=== PATIENT | male | born 1960 | race Caucasian/White ===

== ENCOUNTER 2017-10-15 05:53 | Observation (INO) | payer OTHER, SELFPAY ==
[2017-10-04 15:10] VITALS: BP 129/88; PULSE 77; RESP 16; TEMP 36.9; O2SAT 95; BMI 34.7
--- NOTE | 2017-10-04 17:02 | PCM.HP.BLA ---
History and Physical DATE OF SERVICE: 10/15/2017 SCHEDULED PROCEDURE: Right knee unicompartmental arthroplasty HISTORY OF PRESENT ILLNESS: This is a 57-year-old male who recently underwent a left knee unicompartmental knee replacement in August 2017. Patient is doing well from that procedure. Patient states he is having difficulties with activities of daily living with his right knee. Pain is been intermittent. Pain is increased with sitting for extended periods of time. He has stumbled secondary to his right knee pain. Patient has tried rest and ice with no relief in symptoms. He has tried previous elevation and cortisone injection with minimal relief. Patient has been through physical therapy with no relief in symptoms. He has tried previous Euflexxa injections with no relief. Patient has been treated in the past by Dr. Rosado. Patient underwent a right knee arthroscopy in 2012. Patient did not see any significant improvement from surgery and conservative measures with the right knee. He has had a previous fracture of the patella many years ago on the right knee. Patient has lost approximately 15 pounds with no relief. Patient also underwent previous surgery in 1982 for his patella. Patient has tried a brace without significant relief. After failing conservative measures and discussing all treatment options with Dr. Betancourt, the patient would like to proceed with a right knee unicompartmental replacement. Patient lists no medical problems. He has no chest pain, shortness of breath, fevers chills, or recent infections. REVIEW OF SYSTEMS: ROS: Const: Denies anorexia, change in appetite, fever, difficulty sleeping, weight change. CV: Denies chest pain, heart murmur, irregular heartbeat and peripheral vascular disease. Resp: Denies asthma, cough, pneumonia, sleep apnea, shortness of breath, tuberculosis and wheezing. GI: Denies constipation, diarrhea, heartburn, nausea, rectal itching, bloody stools and vomiting. : . (F Genital Sx) Denies incontinence. Musculo: Denies leg swelling, pain, trouble walking and weakness. Skin: Denies Raynaud's, history of shingles and tattoo. Neuro: Denies ambulatory dysfunction, dizziness, numbness/tingling and tremor. Psych: Denies anxiety, depression, insomnia, mental illness and stress. Derrick/Lymph: Denies anemia, bleeding/bruising tendency and past transfusion. Reviewed, no changes. PAST MEDICAL HISTORY: Advance Care Plan: No Advance Directives Effective Date: 06/12/2017 PMH: Medical Problems: None Accidents: Fracture - RIGHT WRIST 11-29-2010 LEFT WRIST - 1989' RIGHT KNEE CAP - 1981 Surgical Hx: Back Surgery - 1993 AND [address] BETANC[address] AT [facility] RT Knee Arthroscopy - (2012) DR ROSADO LT Knee Arthroscopy - X2 Knee Replacement Unicompartmental LT - (08/20/2017) [email or web address] Anesthesia Complications: None Assistive Devices: Glasses - READING Reviewed, no changes. SOCIAL HISTORY: SH: Marital: .Occupation: [employer] - SELF EMPLOYED.Work Status: Currently Working.Hand Dominance: Right-handed. Personal Habits: Cigarette Use: Never Smoked Cigarettes.Alcohol: Occasionally.Drug Use: Denies Use.Enjoy Exercising: Exercises 1-3 x/month. Reviewed, no changes. VITALS: Ht: 73 Wt: 255lb Wt k.668 BMI: 33.6 BP: 126/72 Pulse: 68 Resp: 16 T: 97. T: 36.1C ALLERGIES: Penicillin - Possible Reaction-Patient Is Not Sure Of Reaction MEDICATIONS: No Active Medications PRE-OP EXAM: General appearance:NORMAL Other: Eyes: Conjunctivae and lids: NORMAL Pupils: ERR Ears, Nose, Mouth, and Throat: NORMAL Other: Inspection of lips, teeth and gums: NORMAL Other: Neck: Examination of neck: no masses noted. Respiratory: Assessment of respiratory effort: NORMAL Other: Ausculation of lungs: clear to ausculation no wheeses, ronchi or rales. Cardiovascular: Ausculation of heart: regular rate and rhythem, no mummurs, gallops or rubs. Exam of carotid arteries: NORMAL Other: Gastrointestinal: Exam of abdomen: soft, nontender, nondistended bowel sounds present. Lymphatic: Palpation of nodes in neck: NORMAL Other: Palpation of nodes in Axillae: NORMAL Other: Neurological: see below Psychiatric: Orientation to time, place and person: NORMAL Other: Mood and affect: NORMAL Other: PHYSICAL EXAMINATION: Right knee is cool to touch without erythema. Previous incisions well-healed. Tenderness to palpation along the medial joint line. Patient does present with mild effusion. Range of motion is 0? of extension to 120? of flexion with increased pain on end range. Sensations intact to light touch. IMAGING STUDIES: X-rays from [facility] shows severe right knee osteoarthritis with joint space narrowing, subchondral sclerosis, and osteophyte formation consistent with severe osteoarthritis. There is large osteophyte at the patellofemoral joint. MRI was obtained at [facility] on May 20, 2017 which does reveal status post medial meniscectomy without signs of recurrent tear. There is advanced osteoarthritis of the medial compartment with some progression. IMPRESSION: 1. Progressive medial compartment osteoarthritis PLAN: Dr. Porter did discuss and review with the patient all treatment options including surgical versus nonsurgical. Patient wishes to proceed with above-stated procedure. Potential risks, benefits, and complications of this procedure were discussed in detail including but not limited to , infection, nerve and blood vessel damage, persistent pain, numbness, tingling, paresthesias, blood clot, pulmonary embolism, and requirement for further surgery. The patient expressed full understanding has no further questions for the doctor. Patient does agree to proceed with the above-stated procedure and has signed the surgery consent form. ___ I have re-examined the patient. There are no clinical changes since date of exam. ___ See progress notes for changes. ___ Dictated on admission Date: Time: Signature:
--- NOTE | 2017-10-04 17:15 | HP.PCM_ITS ---
History and Physical DATE OF SERVICE: 10/15/2017 SCHEDULED PROCEDURE: Right knee unicompartmental arthroplasty HISTORY OF PRESENT ILLNESS: This is a 57-year-old male who recently underwent a left knee unicompartmental knee replacement in August 2017. Patient is doing well from that procedure. Patient states he is having difficulties with activities of daily living with his right knee. Pain is been intermittent. Pain is increased with sitting for extended periods of time. He has stumbled secondary to his right knee pain. Patient has tried rest and ice with no relief in symptoms. He has tried previous elevation and cortisone injection with minimal relief. Patient has been through physical therapy with no relief in symptoms. He has tried previous Euflexxa injections with no relief. Patient has been treated in the past by Dr. Rosado. Patient underwent a right knee arthroscopy in 2012. Patient did not see any significant improvement from surgery and conservative measures with the right knee. He has had a previous fracture of the patella many years ago on the right knee. Patient has lost approximately 15 pounds with no relief. Patient also underwent previous surgery in 1982 for his patella. Patient has tried a brace without significant relief. After failing conservative measures and discussing all treatment options with Dr. Betancourt, the patient would like to proceed with a right knee unicompartmental replacement. Patient lists no medical problems. He has no chest pain, shortness of breath, fevers chills, or recent infections. REVIEW OF SYSTEMS: ROS: Const: Denies anorexia, change in appetite, fever, difficulty sleeping, weight change. CV: Denies chest pain, heart murmur, irregular heartbeat and peripheral vascular disease. Resp: Denies asthma, cough, pneumonia, sleep apnea, shortness of breath, tuberculosis and wheezing. GI: Denies constipation, diarrhea, heartburn, nausea, rectal itching, bloody stools and vomiting. : . (F Genital Sx) Denies incontinence. Musculo: Denies leg swelling, pain, trouble walking and weakness. Skin: Denies Raynaud's, history of shingles and tattoo. Neuro: Denies ambulatory dysfunction, dizziness, numbness/tingling and tremor. Psych: Denies anxiety, depression, insomnia, mental illness and stress. Derrick/Lymph: Denies anemia, bleeding/bruising tendency and past transfusion. Reviewed, no changes. PAST MEDICAL HISTORY: Advance Care Plan: No Advance Directives Effective Date: 06/12/2017 PMH: Medical Problems: None Accidents: Fracture - RIGHT WRIST 11-29-2010 LEFT WRIST - 1989' RIGHT KNEE CAP - 1981 Surgical Hx: Back Surgery - 1993 AND [address] BETANCOURT AT [facility] RT Knee Arthroscopy - (2012) DR ROSADO LT Knee Arthroscopy - X2 Knee Replacement Unicompartmental LT - (08/20/2017) [email or web address] Anesthesia Complications: None Assistive Devices: Glasses - READING Reviewed, no changes. SOCIAL HISTORY: SH: Marital: .Occupation: [employer] - SELF EMPLOYED.Work Status: Currently Working.Hand Dominance: Right-handed. Personal Habits: Cigarette Use: Never Smoked Cigarettes.Alcohol: Occasionally.Drug Use: Denies Use.Enjoy Exercising: Exercises 1-3 x/month. Reviewed, no changes. VITALS: Ht: 73 Wt: 255lb Wt k.668 BMI: 33.6 BP: 126/72 Pulse: 68 Resp: 16 T: 97. T: 36.1C ALLERGIES: Penicillin - Possible Reaction-Patient Is Not Sure Of Reaction MEDICATIONS: No Active Medications PRE-OP EXAM: General appearance:NORMAL Other: Eyes: Conjunctivae and lids: NORMAL Pupils: ERR Ears, Nose, Mouth, and Throat: NORMAL Other: Inspection of lips, teeth and gums: NORMAL Other: Neck: Examination of neck: no masses noted. Respiratory: Assessment of respiratory effort: NORMAL Other: Ausculation of lungs: clear to ausculation no wheeses, ronchi or rales. Cardiovascular: Ausculation of heart: regular rate and rhythem, no mummurs, gallops or rubs. Exam of carotid arteries: NORMAL Other: Gastrointestinal: Exam of abdomen: soft, nontender, nondistended bowel sounds present. Lymphatic: Palpation of nodes in neck: NORMAL Other: Palpation of nodes in Axillae: NORMAL Other: Neurological: see below Psychiatric: Orientation to time, place and person: NORMAL Other: Mood and affect: NORMAL Other: PHYSICAL EXAMINATION: Right knee is cool to touch without erythema. Previous incisions well-healed. Tenderness to palpation along the medial joint line. Patient does present with mild effusion. Range of motion is 0? of extension to 120? of flexion with increased pain on end range. Sensations intact to light touch. IMAGING STUDIES: X-rays from [facility] shows severe right knee osteoarthritis with joint space narrowing, subchondral sclerosis, and osteophyte formation consistent with severe osteoarthritis. There is large osteophyte at the patellofemoral joint. MRI was obtained at [facility] on May 20, 2017 which does reveal status post medial meniscectomy without signs of recurrent tear. There is advanced osteoarthritis of the medial compartment with some progression. IMPRESSION: 1. Progressive medial compartment osteoarthritis PLAN: Dr. Porter did discuss and review with the patient all treatment options including surgical versus nonsurgical. Patient wishes to proceed with above- stated procedure. Potential risks, benefits, and complications of this procedure were discussed in detail including but not limited to , infection , nerve and blood vessel damage, persistent pain, numbness, tingling, paresthesias, blood clot, pulmonary embolism, and requirement for further surgery. The patient expressed full understanding has no further questions for the doctor. Patient does agree to proceed with the above-stated procedure and has signed the surgery consent form. ___ I have re-examined the patient. There are no clinical changes since date of exam. ___ See progress notes for changes. ___ Dictated on admission Date: Time: Signature:
[2017-10-15] VITALS (10 sets, daily range): BP systolic 99–142; BP diastolic 49–80; PULSE 65–95; RESP 16–18; TEMP 36.1–37.1; O2SAT 89–98; BMI 34.7
[2017-10-15] MEDS: oxyCODONE HCl Cr 10 MG Tablet PO (06:30)
[2017-10-15] MEDS: Acetaminophen 500 MG Tablet 1000 MG PO ×3 (06:30→21:00)
[2017-10-15] MEDS: Cefazolin 2 GM in 0.9% Normal Saline 100 ML IV (07:21)
--- NOTE | 2017-10-15 07:23 | RAD_ITS ---
STUDY: X-RAY - RIGHT KNEE REASON FOR EXAM: Male, 57 years old. Knee replacement. TECHNIQUE: AP and lateral view(s) of the knee. COMPARISON: Comparison is made with prior examination dated June 12, 2017. FINDINGS: The patient is status post medial hemiarthroplasty. There is normal alignment. Postoperative soft tissue changes. RAD/Knee 1 or 2 Views IMPRESSION: The patient is status post medial hemiarthroplasty. There is good alignment. Postoperative soft tissue changes. Electronically Signed: Orlando Zimmer MD at 10:50 EST Tel [phone], Service support ,
--- NOTE | 2017-10-15 10:58 | NURSING ---
pt's pulse ox drops when sleeping, quickly rises when awakened
[2017-10-15] MEDS: Lactated Ringers 1,000 ML 125 ML IV ×2 (12:30→20:59)
[2017-10-15] MEDS: Senna/Docusate Sodium 1 Tablet 2 TABLET PO ×2 (12:35→21:00)
[2017-10-15] MEDS: oxyCODONE 5 MG Tablet PO ×2 (14:07→21:01)
[2017-10-15] MEDS: Cefazolin 1 GM/50 ML BAG IV ×2 (15:14→22:30)
[2017-10-15] MEDS: Meloxicam 7.5 MG Tablet PO ×2 (15:14→21:00)
[2017-10-15] MEDS: Aspirin 325 MG Tablet PO (17:10)
[2017-10-16 02:30] VITALS: BP 103/69; PULSE 78; RESP 16; TEMP 37.1; O2SAT 98
[2017-10-16] MEDS: oxyCODONE 5 MG Tablet PO (02:37)
[2017-10-16] MEDS: Acetaminophen 500 MG Tablet 1000 MG PO (05:59)
[2017-10-16 07:05] LABS: Hematocrit 38.3 % (40-54); Hemoglobin 12.1 g/dl (13.0-16.5); Mean Corp Hgb Conc 31.6 g/gl (32-36); Mean Corpuscular Hgb 28.9 pg (27.0-32.0); Mean Corpuscular Volume 91.6 fL (80-94); Mean Platelet Vol. 9.6 fl (6.2-12.0); Platelet Count 203 K/mm3 (150-450); RBC Distribution Width CV 13.7 % (11.6-14.6); RBC Distribution Width SD 45.2 fl (35.1-43.9); Red Blood Count 4.18 M/mm3 (4.6-6.2)
[2017-10-16 07:06] LABS: Scan Indicated on CBC? Y/N NO
[2017-10-16 07:26] LABS: Anion Gap 7 (5-15); BUN 12 mg/dL (7-18); Chloride 107 mmol/L (98-107); Creatinine, Serum 0.86 mg/dL (0.70-1.30); EST Glomerular Filtration Rate 98 mL/min (>60); Est Glom Filt Rate - Afr Amer 119 mL/min (>60); Estimated Creatinine Clearance 108.39 ml/min; Glucose 102 mg/dL (74-106); Sodium Level 139 mmol/L (136-145)
[2017-10-16 08:14] VITALS: BP 131/65; PULSE 85; RESP 18; TEMP 37.1; O2SAT 95
--- NOTE | 2017-10-16 08:15 | PN.ORTHO_ITS ---
Subjective: Patient is resting comfortably in bed during exam. No adverse events overnight. Pain in the right knee has been well controlled. Denies chest pain , shortness of breath, dizziness, calf pain. Doing well overall would like to be discharged home later today as long as he is doing well with physical therapy and pain is well controlled. Patient states that his believes that oxycodone makes him mean/irritable. He does wish to discontinue this medication and switch to [place]. It has worked in the past. Objective: Patient is alert and oriented ?3. No acute distress at rest. Breathing easily without respiratory distress. Inspection of dressings are with minimal dried bloody drainage. Negative Dory bilaterally without signs of DVT. Sensation intact light touch bilateral lower extremities. Able to actively plantar and dorsiflex bilateral feet against resistance. Pedal pulses present +2 bilaterally. Neurovascularly intact. - Physical Exam Vital Signs Temp Pulse Resp BP Pulse Ox 98.7 F 78 16 103/69 98 10/16/17 02:30 10/16/17 02:30 10/16/17 02:30 10/16/17 02:30 10/16/17 02:30 Oxygen Delivery Method Room Air Weight: 119.2 kg Body Mass Index (BMI) 34.7 Intake and Output for Last 24 Hours 10/14/17 10/15/17 10/16/17 23:59 23:59 23:59 Intake Total 4075 / 4075 888 / 888 Output Total 250 / 250 400 / 400 Balance 3825 / 3825 488 / 488 Laboratory Tests Past 24 Hrs 10/16/17 10/16/17 06:30 06:30 WBC 8.0 RBC 4.18 L Hgb 12.1 L Hct 38.3 L MCV 91.6 MCH 28.9 MCHC 31.6 L RDW 13.7 RDW Differential 45.2 H Plt Count 203 MPV 9.6 Sodium 139 Potassium 4.0 Chloride 107 Carbon Dioxide 25.0 Anion Gap 7 BUN 12 Creatinine 0.86 Estim Creat Clear Calc 108.39 Est GFR (MDRD) Af Amer 119 Est GFR (MDRD) Non-Af 98 BUN/Creatinine Ratio 14.0 Glucose 102 Calcium 8.0 L Assessment/Plan 1. Status post right medial U KA and lateral osteophyte excision; postop day #1 2. Discontinue Tylenol and OxyIR add One[place] 3. DVT prophylaxis; bilateral teds, SCDs and begin aspirin therapy 4. Begin PT/OT; weightbearing as tolerated right lower extremity with a walker 5. Drop in hemoglobin/hematocrit, asymptomatic; continue to monitor. Without indication for transfusion 6. Encourage incentive spirometry 7. Continue discharge planning with case management. If patient continues with adequate pain control and does well with physical therapy today we will anticipate discharge to home
--- NOTE | 2017-10-16 08:18 | PCM.DC.TKR ---
Discharge Diet: No Restrictions Discharge Activity: May Not Drive, May not drive while taking narcotic pain medications., Use Walker May shower in (days): 3 Ice area for (Minutes): 20 - every hour while awake. Weight Bearing Status: Weight bearing as tolerated Elevate: Operative Extremity Additional Activity Instructions:: Wear elastic stockings for 2 weeks after your surgery. See postoperative pink sheet Call your doctor if your incision/area has: Continuous Slow Oozing, Sudden Increased Bleeding, Increased Pain/ Swelling, Increased Redness, Foul Smelling Discharge Call your doctor if you observe: Fever of 101 or Higher, Coldness, Increased Pain, Numbness or Tingling, Change in Color, Chest pain, Calf discomfort, Uncontrolled pain Remove Dressing in (days):: 5 Cleanse incision/area with: Soap & Water Additional Dressing/Incision Instructions:: See postoperative pink sheet Allergies/Adverse Reactions: Allergies Penicillins Allergy (Verified 10/15/17 11:39) Unknown Mother is allergic - told by PCP not to take it.. has never taken med celecoxib [From Celebrex] Adverse Reaction (Verified 10/07/17 09:01) MUSCLE CRAMPS oxycodone [From Percocet] Adverse Reaction (Verified 10/07/17 09:01) IRRITABLE very irRITABLE Medications to take at Discharge Aspirin 325 mg PO BIDCM #30 tab 10/16/17 Hydrocodone Bitart/Apap 5-325 [[place] 5/325] 1 - 2 tablet PO Q4H PRN PRN 7 Days #56 tablet 10/16/17 Senna/Docusate Sodium [Senokot-S] 2 tab PO BID #30 tab 10/16/17 The following prescriptions were given: Hydrocodone Bitart/Apap 5-325 [[place] Pow[place] 5/325] 1 - 2 tablet PO Q4H PRN PRN 7 Days #56 tablet PRN Reason: Severe Pain (6-10/10) Aspirin 325 mg PO BIDCM #30 tab Senna/Docusate Sodium [Senokot-S] 2 tab PO BID #30 tab Primary Care Physician: Jayson Arenas MD [Primary Care Provider] - Proposed Discharge Date: 10/16/17
[2017-10-16 08:43] VITALS: PULSE 85; RESP 18; O2SAT 95
[2017-10-16] MEDS: Aspirin 325 MG Tablet PO (08:53)
[2017-10-16] MEDS: Meloxicam 7.5 MG Tablet PO (10:13)
[2017-10-16] MEDS: Senna/Docusate Sodium 1 Tablet 2 TABLET PO (10:13)
--- NOTE | 2017-10-16 11:00 | CASEMGMT ---
GABY WILLS Face to Face with patient for initial transition planning/care coordination assessment. GABY WILLS introduced self and role at [facility]. Patient sitting in chair, alert and oriented. Patient willing to participate in assessment and is able to answer all questions appropriately. Care providers, pharmacy, and demographics verified. See link attached. Patient wishes to discharge home and is setup with [id number] for outpatient therapy. Patient states that his will be providing transportation. Patient states he has no further needs or concerns at this time. CM to follow for discharge planning needs that may arise. Disposition Plan: Patient to discharge home with outpatient therapy, family support, and follow-up plans in place.
[2017-10-16] MEDS: HYDROcodone Bitartrate/Apap 5/325 Tablet PO (13:03)
[2017-10-16 13:23] VITALS: BP 131/59; PULSE 84; RESP 18; TEMP 37.4; O2SAT 96
--- NOTE | 2017-10-16 14:08 | CHAPLAIN ---
Type of Pastoral Visit _x__ Initial Visit ___ Follow-up Visit ___ On-call Visit ___ General Patient Visit ___ Spiritual Assessment ___ Family Conference ___ Bereavement ___ Rapid Response ___ Code Blue ___ Other (describe below) Pastoral Care Referral From _x__ Patient _x__ Family ___ Nurse ___ Physician ___ National Secretary ___ Physiognomist ___ Other (describe below) Sacrament/Intervention ___ Active listening ___ Anointing ___ Evangelical ___ Bereavement ___ Communion ___ Elizabeth exploration ___ ___ Life review ___ Prayer ___ Reconciliation ___ Sacrament of Sick _x__ Supportive presence ___ Wedding ___ Other (describe below) Pastoral Comments patient reports that he is doing well; pt anticipates going home very soon; no concerns at this time; friendly and casual visit
== END 2017-10-16 14:20 | disposition home or self-care (01) ==
PROVIDERS: Admitting Provider Orthopaedic Surgery; Family Provider Family Medicine; PCP Family Medicine; Visit Provider Orthopaedic Surgery
PROC: (CPT 27446; principal; 2017-10-15 07:05)
DX: M17.11 Unilateral primary osteoarthritis, right knee (principal); Z23 Encounter for immunization
CPT/HCPCS: 27446; 64447; 36415; 73560; 80048; 85027; 87081; 96361; 96365; 96366; 97110; 97116; 97162; 97165; 97530; 99218; J7120; 90686; G0378; G0379; J2405

== ENCOUNTER 2017-11-29 08:00 | Outpatient (RCR) | payer OTHER, SELFPAY ==
[2017-10-15 17:08] VITALS: BP 114/67
[2017-10-16 13:23] VITALS: BP 131/59
--- NOTE | 2017-10-18 11:00 | HP.PTEVAL_ITS ---
Patient's Visit Information MEAGHAN RUBI is a 57 year old M referred to Physical Therapy by Torey TELLEZ with a diagnosis of Right partial knee replacement. Date of Evaluation: 10/18/17 Physical Therapist: Renetta Weinstein - Visit Plan Frequency: 2-3x /Week Duration: 3 Weeks Plan: Partial TKR 10/15 - Subjective Subjective: Patient has partial right partial knee replacement Saturday10/15/[address] Gabriel at [facility]. Spent the night and then went home. Had a left TKR Aug 202017 and did great. Took a big bone spur and MD throughout it would be painful. Patient reports increased swelling and hard to bend. Sleep is very disturbed- hard to get comfortable and is sleeping in the chair, couch, anywhere he can be. Worst: 3/10 Agg: movement Ease: ice, meds. Best: 0/10. Pain is located in the hip. No N/T in the toes or knee. Describes pain as dull and achy pains. PMHx/Meds: no change since surgery. Work: [employer]- [employer] mid december. - Objective Posture: FH, RS, Increased kyphosis. Gait: antalgic- uses Fww- decreased stance on the right LE- poor heel/toe pattern secondary to poor ROM. SLS: unable but will weight shift. HRTR: able. Stairs: non recip with 2 HR and significant UE use. Palpation: tender throughout the right knee- not tender in calf. Edema: moderate. ROM: 20-80 degrees. Strength: Ankle: 5/5, Knee: 4/5, Hip: 4-/5 - Goals Goal 1:: Patient will be I with HEP and progression Goal Time Frame: 4-6 Weeks Goal 2:: Patient will ambulate >300 feet with a normalized gait pattern Goal Time Frame: 4-6 Weeks Goal 3:: Patient will demo 0-115 degrees of ROM Goal Time Frame: 4-6 Weeks Goal 4:: Patient will asc/desc 8' stairs recip with 1 HR Goal Time Frame: 4-6 Weeks - Rehabilitation Potential Physical Therapy Diagnosis: Patient presents with hypmobility- he has decreased ROM, strength and muscular endurance leading to decreased ability to perform ADL 's. Rehabilitation Potential: Good - Anticipated Interventions Patient/Client Instruction: Educate patient on: Benefits of Fitness Program For the Purpose of:: To increase tolerance to activity/condition/position Therapeutic Exercise to Include: Strength training, Endurance training, Balance training, Body mechanics, Postural training, Flexibilty training, Gait and locomotor training, Passive ROM, Active ROM, Dynamic Lumbar Stabilization For the Purpose of:: To improve muscle performance and motor function TENS: Yes Cryotherapy (ice pack, ice massage): Yes Thermo therapy (hot pack): Yes Ultrasound (thermal/non thermal): No Vasopneumatic device: Yes For the Purpose of:: To decrease pain Thank you for the opportunity to evaluate your patient. For Medicare and Medicare HMO plans, please review the plan of care and approve it. It will need to be FAXED BACK to us at [phone] for Medicare purposes. Please let me know if there are questions or concerns regarding this plan of care. Physician Signature: Date:
--- NOTE | 2017-11-08 08:51 | HP.PTREVAL_ITS ---
Torey Gabriel, It has been my pleasure to treat MEAGHAN RUBI over the last 10 visits for Right partial knee replacement. Please see the progress note below for an update on the physical therapy plan of care! Subjective: Patient reports that sometimes its so stiff and other times its not so bad. The ROM is coming but its still not there yet. Pain is on the lateral aspect of the knee. Going down stairs is more painful. Objective/Function: Posture: good throughout. Gait: antalgic- decraesed stance on the right LE- poor heel/toe pattern secondary to decreased ROM. Stairs:asc/ desc 8 recip with 2 HR and significant UE A. HR/TR: WNL. Balance: SLS for 3 seconds. ROM:10-120 degrees. Strength: 4+/5 knee and 4+/5 hip Plan Plan: Continue 3x a week for 2 weeks Goals Goal 1:: Patient will be I with HEP and progression Goal Time Frame: 4-6 Weeks Goal Progress: Progressing Goal 2:: Patient will ambulate >300 feet with a normalized gait pattern Goal Time Frame: 4-6 Weeks Goal Progress: Progressing Goal 3:: Patient will demo 0-115 degrees of ROM Goal Time Frame: 4-6 Weeks Goal Progress: Progressing Goal 4:: Patient will asc/desc 8' stairs recip with 1 HR Goal Time Frame: 4-6 Weeks Goal Progress: Progressing Anticipated Interventions Patient/Client Instruction: Educate patient on: Benefits of Fitness Program For the Purpose of:: To increase tolerance to activity/condition/position Therapeutic Exercise to Include: Strength training, Endurance training, Balance training, Body mechanics, Postural training, Flexibilty training, Gait and locomotor training, Passive ROM, Active ROM, Dynamic Lumbar Stabilization For the Purpose of:: To improve muscle performance and motor function TENS: Yes Cryotherapy (ice pack, ice massage): Yes Thermo therapy (hot pack): Yes Ultrasound (thermal/non thermal): No Vasopneumatic device: Yes For the Purpose of:: To decrease pain Please do not hesitate to contact me at [phone] by phone or Fax: if you have questions or concerns regarding this new plan of care! Sincerely, Renetta Weinstein
--- NOTE | 2017-11-22 08:29 | HP.PTREVAL_ITS ---
DR.JGESLE Tran It has been my pleasure to treat MEAGHAN RUBI over the last 16 visits for Right partial knee replacement. Please see the progress note below for an update on the physical therapy plan of care! Subjective: Patient reports that he has tightness and is uncomfortable on the lateral aspect of the knee- Tightness when he is laying down. Feels he is very close to getting over the 'hump' but not quite there yet. Objective/Function: Posture: good throughout. Gait: improving antalgic- decraesed stance on the right LE-decreased heel strike. Stairs:asc/desc 8 recip with no HR. HR/TR: WNL. Balance: SLS for 10 seconds. ROM:0-120 degrees. Strength: 4+/5 knee and 4+/5 hip Plan Plan: Continue 3x a week for 1 week Goals Goal 1:: Patient will be I with HEP and progression Goal Time Frame: 4-6 Weeks Goal Progress: Progressing Goal 2:: Patient will ambulate >300 feet with a normalized gait pattern Goal Time Frame: 4-6 Weeks Goal Progress: Progressing Goal 3:: Patient will demo 0-115 degrees of ROM Goal Time Frame: 4-6 Weeks Goal Progress: Progressing Goal 4:: Patient will asc/desc 8' stairs recip with 1 HR Goal Time Frame: 4-6 Weeks Goal Progress: Goal Met Anticipated Interventions Patient/Client Instruction: Educate patient on: Benefits of Fitness Program For the Purpose of:: To increase tolerance to activity/condition/position Therapeutic Exercise to Include: Strength training, Endurance training, Balance training, Body mechanics, Postural training, Flexibilty training, Gait and locomotor training, Passive ROM, Active ROM, Dynamic Lumbar Stabilization For the Purpose of:: To improve muscle performance and motor function TENS: Yes Cryotherapy (ice pack, ice massage): Yes Thermo therapy (hot pack): Yes Ultrasound (thermal/non thermal): No Vasopneumatic device: Yes For the Purpose of:: To decrease pain Please do not hesitate to contact me at [phone] by phone or Fax: if you have questions or concerns regarding this new plan of care! Sincerely, Renetta Weinstein
--- NOTE | 2017-11-29 08:30 | HP.PTDCSUM_ITS ---
HP - PT D/C Summary It has been my pleasure to treat MEAGHAN RUBI under orders from DR.JGESLE Tran for the diagnosis of Right partial knee replacement for a total of 19 visit(s). Discharge Date: Please see the following information for a summary of their discharge status. - Subjective Subjective: Sitting and Laying still has nerve pain that is pretty consistent with he has his feet raised. Up and moving he is doing great- the extension is still a mild issue. - Overall Improvement % Improvement: 85 - Objective Objective/Function: POSTURE: good throughout. Gait: no deviation noted. Stairs : asc/desc 8 recip with no HR. ROM: 5-125 degrees. Strength: 5/5 throughout. Palpation: not tender - Goals Goal 1:: Patient will be I with HEP and progression Goal Progress: Goal Met Goal 2:: Patient will ambulate >300 feet with a normalized gait pattern Goal Progress: Goal Met Goal 3:: Patient will demo 0-115 degrees of ROM Goal Progress: Progressing Goal 4:: Patient will asc/desc 8' stairs recip with 1 HR Goal Progress: Goal Met - Plan Plan: Discharge - D/C Information If there are questions or concerns regarding this patient's physical therapy, please feel free to call me at [phone]. Thank you for the referral of this patient. Sincerely, Renetta Weinstein
== END 2017-11-29 09:36 | disposition home or self-care (01) ==
LOC: PT 08:00
PROVIDERS: Family Provider Family Medicine; PCP Family Medicine; Visit Provider Orthopaedic Surgery
DX: Z96.651 Presence of right artificial knee joint (principal); Z47.1 Aftercare following joint replacement surgery
CPT/HCPCS: 97016; 97110; 97140; 97161; 97164; 97530

== ENCOUNTER → 2018-01-09 12:21 | Outpatient (CLI) | payer OTHER, SELFPAY ==
--- NOTE | 2018-01-09 12:30 | RAD_ITS ---
STUDY: X-RAY - RIGHT KNEE REASON FOR EXAM: Male, 57 years old. Follow-up joint replacement. TECHNIQUE: 3 view(s) of the knee. COMPARISON: 10/15/2017. FINDINGS: Normal visualized distal femur. Normal visualized proximal tibia and fibula. Normal proximal tibiofibular articulation. Stable appearance of a partial medial compartment arthroplasty with no evidence for complication. Moderate patellofemoral degenerative changes. The soft tissue structures are unremarkable. RAD/Knee 3 Views IMPRESSION: Stable appearance of a partial medial compartment arthroplasty with no evidence for complication. Electronically Signed: Josué Fields MD at 14:03 EDT , Service support ,
== END ==
PROVIDERS: Family Provider Family Medicine; PCP Family Medicine; Visit Provider Orthopaedic Surgery
DX: Z96.651 Presence of right artificial knee joint (principal); Z47.1 Aftercare following joint replacement surgery
CPT/HCPCS: 73562

== ENCOUNTER → 2018-04-16 10:09 | Outpatient (CLI) | payer OTHER, SELFPAY ==
--- NOTE | 2018-04-16 10:34 | RAD_ITS ---
STUDY: X-RAY - LEFT KNEE REASON FOR EXAM: Status post partial replacement. TECHNIQUE: 4 view(s) of the knee. COMPARISON: Radiograph report 06/12/2017. FINDINGS: There is a unicompartmental medial arthroplasty without evidence of complication. Normal lateral femorotibial compartment. There are small marginal osteophytes of the patella without joint space narrowing of the patellofemoral articulation. There is a joint effusion. RAD/Knee 4 or More Views IMPRESSION: Uncomplicated unicompartmental medial arthroplasty. Joint effusion. Electronically Signed: Kayden Mcadams MD at 10:44 EDT Tel , Service support ,
--- NOTE | 2018-04-16 10:38 | RAD_ITS ---
STUDY: X-RAY - RIGHT KNEE REASON FOR EXAM: Status post partial replacement. TECHNIQUE: 4 view(s) of the knee. COMPARISON: Radiographs 01/09/2018. FINDINGS: There is a unicompartmental medial arthroplasty without evidence of complication. Normal lateral femorotibial compartment. There are marginal osteophytes and joint space narrowing of the patellofemoral articulation. There is a joint effusion. RAD/Knee 4 or More Views IMPRESSION: Uncomplicated unicompartmental medial arthroplasty. Patellofemoral arthrosis. Joint effusion. Electronically Signed: Kayden Mcadams MD at 10:49 EDT Tel , Service support ,
== END ==
PROVIDERS: Family Provider Family Medicine; PCP Family Medicine; Visit Provider Orthopaedic Surgery
DX: M25.562 Pain in left knee (principal); Z96.651 Presence of right artificial knee joint
CPT/HCPCS: 73564

== ENCOUNTER 2018-08-22 07:00 | Outpatient (RCR) | payer OTHER, SELFPAY ==
--- NOTE | 2018-09-04 10:00 | DS.PCM_ITS ---
Massage Therapy Discharge Summary: Diagnosis: Effusion of left knee Ossification of muscle, right lower leg No. of Visits: Date of last visit: Patient no showed on 09/04/2018 This patient is being discharged from our care at the [facility]. Thank you, Bina Alfaro LMT
== END 2018-08-22 19:00 | disposition home or self-care (01) ==
LOC: MASS 07:00
PROVIDERS: Family Provider Family Medicine; PCP Family Medicine; Visit Provider Orthopaedic Surgery
DX: M25.462 Effusion, left knee (principal); M61.561 Other ossification of muscle, right lower leg
CPT/HCPCS: 97124

== ENCOUNTER 2018-09-10 06:50 | Emergency (ER) | payer OTHER, SELFPAY ==
[2018-09-10 06:52] VITALS: BP 136/77; PULSE 81; RESP 16; TEMP 36.7; O2SAT 96; BMI 33.2
--- NOTE | 2018-09-10 07:05 | CT_ITS ---
STUDY: CT ABDOMEN AND PELVIS WITHOUT CONTRAST REASON FOR EXAM: Male, 57 years old. Right-sided flank pain. RADIATION DOSAGE (If Supplied By Facility): CTDIvol = ( 15.55 ) mGy, DLP = ( 889.50 ) mGycm TECHNIQUE: Transaxial images were obtained from the dome of the diaphragm to the symphysis pubis without oral contrast, and without intravenous contrast. Sagittal and coronal images were reconstructed. Individualized dose optimization techniques were used for this CT. COMPARISON: CT of the abdomen and pelvis dated June 24, 2006. FINDINGS: The visualized lung bases are unremarkable. The visualized portions of the heart are within normal limits. Normal liver. There is non-visualization of the gallbladder, which may be secondary to either contraction or a prior cholecystectomy. Normal spleen. Normal pancreas. Normal bilateral adrenal glands. There is mild right-sided hydronephrosis and hydroureter secondary to a distal ureteral calculus measuring approximately 2.7 mm. There is small right-sided renal cystic lesions. The left renal collecting system appears dilated possibly related to previous obstruction. The patient also may have a congenital UPJ stenosis. There is a small hiatal hernia. There is no evidence for dilated bowel, ascites or pneumoperitoneum. Small bowel has a grossly normal unenhanced appearance. Stool is visible throughout the colon with scattered colonic diverticula. The appendix is visualized and appears normal. Normal abdominal aorta. Normal inferior vena cava. Normal retroperitoneum. Normal urinary bladder. There are prostatic calcifications. There is a small umbilical hernia containing fat. There are diffuse degenerative changes of the visualized lumbar spine. CT/Abdomen/Pelvis without Cont IMPRESSION: 1. Mild sided hydronephrosis and hydroureter secondary to distal ureteral calculus. 2. Large left-sided parapelvic cysts versus a chronic UPJ obstruction. Right-sided flank pain. Electronically Signed: Leila Churchill MD at 8:04 EST , Service support ,
[2018-09-10 07:22] LABS: Absolute Lymphocyte Count 1.92 X10^3/ul (0.83-4.51); Absolute Neutrophil Count 3.2 X10^3/uL (2.0-7.7); Basophil# 0.06 X10^3/uL; Eosinophil# 0.17 X10^3/uL; Eosinophils% 2.9 % (0-5); Hematocrit 48.1 % (40-54); Hemoglobin 16.3 g/dl (13.0-16.5); Lymphocyte # 1.92 X10^3/ul (4.0); Lymphocyte % 32.2 % (19-41); Mean Corp Hgb Conc 33.9 g/gl (32-36); Mean Corpuscular Volume 88.6 fL (80-94); Mean Platelet Vol. 9.2 fl (6.2-12.0); Monocyte# 0.56 X10^3/uL; Monocyte% 9.4 % (0-10); Neutrophil # 3.23 X10^3/uL (2.7-7.7); Neutrophil % 54.2 % (47-70); Platelet Count 269 K/mm3 (150-450); RBC Distribution Width CV 13.3 % (11.6-14.6); RBC Distribution Width SD 43.1 fl (35.1-43.9); Red Blood Count 5.43 M/mm3 (4.6-6.2)
[2018-09-10 07:23] LABS: POSITIVE COUNT NO; POSITIVE DIFFERENTIAL NO; POSITIVE MORPHOLOGY NO
--- NOTE | 2018-09-10 07:28 | ED.DCSUM_ITS ---
- ER Visit Summary Date of Service: 09/10/18 Chief Complaint: Flank pain History of Present Illness: The patient is a 57 M with the sudden onset of right-sided flank pain early this morning while he was at rest. Early on, the pain radiated into his abdomen but currently it is only localized to his right flank. Nothing seems to bring it on or make it worse. Nothing seems to make it better. Associated with sweats and nausea. He has a history of kidney stones years ago, but they resolved spontaneously. Remote history of cholecystectomy. No urinary symptoms. No GI symptoms. No fevers. No rashes. Physical Examination: Afebrile and vital signs unremarkable. The patient katie ears uncomfortable but not toxic or in distress. Heart regular. Lungs clear. Abdomen soft and nontender. Right flank tender to palpation. No CVA tenderness. Overlying skin appears normal without rash. Test Results: Laboratory studies, urinalysis, and CT abdomen/pelvis are pending. Emergency Department Course and Treatment: Patient was treated with fluids, Zofran, and Toradol while awaiting results. Blood work was all fairly unremarkable. Urinalysis shows no signs of infection. CT showed right side hydroureter and hydronephrosis with a 2.7 mm distal ureter stone. Left side shows some chronic dilation of an unclear etiology. Patient has pain and nausea free after Toradol and Zofran. He has a high probability of passing the stone without intervention. I will refer him to Dr. Moses for follow-up regarding his stone and CT findings. He was given a prescription for Flomax, Zofran, and [place]. Return for intractable pain or any new or worsening symptoms. Treatment Plan: As above Disposition: Discharge Impression: 1. Right ureteral colic This note was generated with [employer] software. It may contain incorrect words, spelling, and punctuation that were not noted in review of the chart prior to signing ED Disposition - Plan for ED Patient: Chief Complaint: Flank Pain Referrals: Jayson Arenas MD [Primary Care Provider] -
[2018-09-10 07:31] LABS: ALB/GLOB Ratio 0.9 RATIO (0.9-2.4); AST(SGOT) 38 U/L (15-37); Alanine Aminotransfer ALT/SGPT 49 U/L (16-61); Albumin, Serum 3.4 g/dL (3.2-5.0); Alkaline Phosphatase 93 U/L (45-117); Anion Gap 7 (5-15); BUN 12 mg/dL (7-18); BUN/Creat Ratio 10.3 RATIO (10-20); Calcium,Total 8.3 mg/dL (8.5-10.1); Chloride 108 mmol/L (98-107); Creatinine, Serum 1.16 mg/dL (0.70-1.30); EST Glomerular Filtration Rate 69 mL/min (>60); Est Glom Filt Rate - Afr Amer 84 mL/min (>60); Estimated Creatinine Clearance 80.36 ml/min; Globulin 3.7 g/dL (2.2-4.2); Glucose 110 mg/dL (74-106); Lipase 96 U/L (73-393); Potassium 5.1 mmol/L (3.5-5.1); Protein, Total 7.1 g/dL (6.4-8.2); Sodium Level 139 mmol/L (136-145)
[2018-09-10] MEDS: Ondansetron 4 MG/2 ML Vial IV (07:32)
[2018-09-10] MEDS: 0.9% Normal Saline 1,000 ML 1000 ML IV (07:32)
[2018-09-10] MEDS: Ketorolac 30 MG/ML Syringe IV (07:32)
[2018-09-10 08:33] LABS: Bacteria 0 SEEN /hpf (None Seen); Squamous Epithelial Cells - UA 0 SEEN /hpf (0-5); White Blood Cells 0 SEEN /hpf (0-5)
[2018-09-10 08:35] LABS: Color, Urine Yellow (Yellow); Glucose, Dipstick Normal (Normal); Ketone-Dipstick Negative (Negative); Leukocyte Esterase-Dipstick Negative /ul (Negative); Nitrite-Dipstick Negative (Negative); Occult Blood-Urine 50 /ul (Negative); Protein-Dipstick Negative (Negative); Specific Gravity, Urine 1.015 (1.002-1.030); Urine Bilirubin Dipstick Negative (Negative); Urine Clarity Sl. Cloudy (Clear); Urine Urobilinogen Normal (Normal)
[2018-09-10 08:41] LABS: Mucous, Urine 1+ /hpf (<or=2+); Red Blood Cells-Urine 0-5 SEEN /hpf (0-5)
--- NOTE | 2018-09-10 08:59 | DCINST.ED_ITS ---
ED Disposition - Plan for ED Patient: Chief Complaint: Flank Pain Instructions: ED Stone Renal W Colic Prescriptions: Hydrocodone Bitart/Apap 5-325 [[place] 5MG-325MG] 1 tab PO Q6H PRN PRN 3 Days #12 tab PRN Reason: Pain Ondansetron [Zofran Odt] 4 mg PO Q8H PRN PRN #10 tab PRN Reason: Nausea Tamsulosin HCl [Flomax] 0.4 mg PO DAILY #7 cap Referrals: Waqas Moses MD [STAFF PHYSICIAN] -
[2018-09-10 09:20] VITALS: BP 129/75; PULSE 79; RESP 18; O2SAT 97
== END 2018-09-10 09:21 | disposition home or self-care (01) ==
PROVIDERS: Emergency Provider Emergency Medicine; Family Provider Family Medicine; PCP Family Medicine
DX: N13.2 Hydronephrosis with renal and ureteral calculous obstruction (principal); Z87.442 Personal history of urinary calculi; Z90.49 Acquired absence of other specified parts of digestive tract
CPT/HCPCS: 74176; 80053; 81001; 83690; 85025; 96374; 96375; 99284; J7030; A4216; J2405

== ENCOUNTER → 2018-10-08 09:27 | Outpatient (CLI) | payer OTHER, SELFPAY ==
[2018-10-06 09:59] VITALS: BMI 33.2
[2018-10-08 10:07] LABS: AST(SGOT) 22 U/L (15-37); Alanine Aminotransfer ALT/SGPT 44 U/L (16-61); Albumin, Serum 3.5 g/dL (3.2-5.0); Alkaline Phosphatase 96 U/L (45-117); Anion Gap 6 (5-15); BUN 17 mg/dL (7-18); BUN/Creat Ratio 15.7 RATIO (10-20); Calcium,Total 8.5 mg/dL (8.5-10.1); Chloride 111 mmol/L (98-107); Creatinine, Serum 1.08 mg/dL (0.70-1.30); EST Glomerular Filtration Rate 75 mL/min (>60); Est Glom Filt Rate - Afr Amer 91 mL/min (>60); Globulin 3.5 g/dL (2.2-4.2); Glucose 113 mg/dL (74-106); Potassium 4.1 mmol/L (3.5-5.1); Sodium Level 141 mmol/L (136-145)
== END ==
PROVIDERS: Family Provider Family Medicine; PCP Family Medicine; Referring Provider Family Medicine; Visit Provider Family Medicine
DX: Z20.5 Contact with and (suspected) exposure to viral hepatitis (principal)
CPT/HCPCS: 36415; 80053

== ENCOUNTER → 2018-10-16 14:04 | Outpatient (CLI) | payer OTHER, SELFPAY ==
[2018-10-06 09:59] VITALS: BMI 33.2
[2018-10-16 16:42] LABS: PSA,Total - Annual Screen 5.22 ng/mL (0.00-4.00)
== END ==
PROVIDERS: Family Provider Family Medicine; PCP Family Medicine; Referring Provider Urology; Visit Provider Urology
DX: Z12.5 Encounter for screening for malignant neoplasm of prostate (principal)
CPT/HCPCS: 36415; 84153; G0103

== ENCOUNTER → 2018-10-21 09:14 | Outpatient (CLI) | payer OTHER, SELFPAY ==
[2018-10-06 09:59] VITALS: BMI 33.2
[2018-10-21 09:16] LABS: Bacteria 0 SEEN /hpf (None Seen); Mucous, Urine 0 SEEN /hpf (<or=2+); Red Blood Cells-Urine 0 SEEN /hpf (0-5); Squamous Epithelial Cells - UA 0 SEEN /hpf (0-5); White Blood Cells 0 SEEN /hpf (0-5)
[2018-10-21 10:31] LABS: Color, Urine Yellow (Yellow); Glucose, Dipstick Normal (Normal); Ketone-Dipstick Negative (Negative); Leukocyte Esterase-Dipstick Negative /ul (Negative); Nitrite-Dipstick Negative (Negative); Occult Blood-Urine Negative /ul (Negative); Protein-Dipstick Negative (Negative); Urine Bilirubin Dipstick Negative (Negative); Urine Clarity Clear (Clear); Urine Urobilinogen Normal (Normal)
[2018-10-21 10:34] LABS: Absolute Lymphocyte Count 1.93 X10^3/ul (0.83-4.51); Absolute Neutrophil Count 3.1 X10^3/uL (2.0-7.7); Basophil# 0.04 X10^3/uL; Basophil% 0.7 % (0-1); Eosinophil# 0.15 X10^3/uL; Eosinophils% 2.5 % (0-5); Hemoglobin 15.2 g/dl (13.0-16.5); Lymphocyte # 1.93 X10^3/ul (4.0); Lymphocyte % 32.4 % (19-41); Mean Corpuscular Hgb 29.5 pg (27.0-32.0); Mean Corpuscular Volume 89.1 fL (80-94); Monocyte# 0.72 X10^3/uL; Monocyte% 12.1 % (0-10); Neutrophil # 3.11 X10^3/uL (2.7-7.7); Neutrophil % 52.1 % (47-70); Platelet Count 260 K/mm3 (150-450); RBC Distribution Width CV 13.4 % (11.6-14.6); RBC Distribution Width SD 43.6 fl (35.1-43.9); Red Blood Count 5.16 M/mm3 (4.6-6.2)
[2018-10-21 10:35] LABS: POSITIVE COUNT NO; POSITIVE DIFFERENTIAL NO; POSITIVE MORPHOLOGY NO
[2018-10-21 11:08] LABS: AST(SGOT) 21 U/L (15-37); Alanine Aminotransfer ALT/SGPT 41 U/L (16-61); Albumin, Serum 3.6 g/dL (3.2-5.0); Alkaline Phosphatase 99 U/L (45-117); Anion Gap 4 (5-15); BUN 11 mg/dL (7-18); Calcium,Total 8.5 mg/dL (8.5-10.1); Chloride 109 mmol/L (98-107); Creatinine, Serum 0.85 mg/dL (0.70-1.30); EST Glomerular Filtration Rate 99 mL/min (>60); Est Glom Filt Rate - Afr Amer 120 mL/min (>60); Globulin 3.6 g/dL (2.2-4.2); Glucose 88 mg/dL (74-106); Protein, Total 7.2 g/dL (6.4-8.2); Sodium Level 139 mmol/L (136-145)
[2018-10-22 05:07] LABS: Hepatitis A AB, Total Negative (Negative)
[2018-10-22 11:48] LABS: Hepatitis A IgM Antibody Negative (Negative)
== END ==
PROVIDERS: Family Provider Family Medicine; PCP Family Medicine; Visit Provider Family Medicine
DX: N20.0 Calculus of kidney (principal); R10.13 Epigastric pain; Z20.5 Contact with and (suspected) exposure to viral hepatitis
CPT/HCPCS: 36415; 80053; 81001; 85025; 86708; 86709

== ENCOUNTER → 2018-10-22 08:43 | Outpatient (CLI) | payer OTHER, SELFPAY ==
[2018-10-06 09:59] VITALS: BMI 33.2
--- NOTE | 2018-10-22 08:45 | US_ITS ---
STUDY: RENAL ULTRASOUND - COMPLETE REASON FOR EXAM: Male, 58 years old. History of kidney stones. Follow-up TECHNIQUE: Ultrasound evaluation of the kidneys was performed with real-time and static villagomez-scale imaging. COMPARISON: CT abdomen and pelvis 09/10/2017, 06/24/2006. FINDINGS: On the CT study of 09/10/2018 there is a tiny calculus of the distal right ureter contributing to mild right hydronephrosis. There are no retained calculi of the kidneys and there is no calculus along the course of the left ureter. RIGHT KIDNEY: The right kidney measures 12.4 x 5.2 x 7.0 cm. Cortical thickness 2 cm. Normal cortical echotexture. There is no mass, cyst, calculus or hydronephrosis. LEFT KIDNEY: The left kidney measures 13.2 x 6.3 x 7.0 cm. Cortical thickness 2.2 cm. Normal cortical echotexture. Multiple left renal parapelvic benign-appearing cyst stable compared to prior imaging. There is no mass, calculus or hydronephrosis. BLADDER: Urinary bladder distended volume 353 mL, M.D. volume 37 mL, small postvoid residual. The bladder appears normal in caliber, contour and wall thickness. Maximum wall thickness 3 mm. Bilateral ureteral jets are visualized. Distal ureters are not well seen. US/Kidney and Bladder IMPRESSION: Bilateral ureteral jets are consistent with ureteral patency. No acute hydronephrosis. Parapelvic cysts of the left kidney. No sonographic evidence of retained calculus within the kidneys. Electronically Signed: Jenaro Perez MD at 17:53 EST Tel , Service support ,
== END ==
PROVIDERS: Family Provider Family Medicine; PCP Family Medicine; Referring Provider Family Medicine; Visit Provider Family Medicine
DX: N20.0 Calculus of kidney (principal)
CPT/HCPCS: 76770

== ENCOUNTER → 2018-11-27 08:36 | Outpatient (CLI) | payer OTHER, SELFPAY ==
[2018-10-06 09:59] VITALS: BMI 33.2
[2018-11-27 10:42] LABS: PSA,Total- Diagnostic 1.82 ng/mL (0.0-4.0)
== END ==
PROVIDERS: Family Provider Family Medicine; PCP Family Medicine; Referring Provider Urology; Visit Provider Urology
DX: R97.20 Elevated prostate specific antigen [PSA] (principal)
CPT/HCPCS: 36415; 84153

== ENCOUNTER → 2019-09-30 14:44 | Outpatient (CLI) | payer OTHER, SELFPAY ==
[2018-10-06 09:59] VITALS: BMI 33.2
[2019-09-30 15:31] LABS: Absolute Lymphocyte Count 2.43 X10^3/uL (0.83-4.51); Absolute Neutrophil Count 4.4 X10^3/uL (2.0-7.7); Basophil# 0.07 X10^3/uL; Basophil% 0.9 % (0-1); Eosinophil# 0.16 X10^3/uL; Hematocrit 46.3 % (40-54); Hemoglobin 15.4 g/dL (13.0-16.5); Lymphocyte # 2.43 X10^3/ul (4.0); Mean Corp Hgb Conc 33.3 g/dL (32-36); Mean Corpuscular Hgb 29.7 pg (27.0-32.0); Mean Corpuscular Volume 89.4 fL (80-94); Mean Platelet Vol. 9.5 fl (6.2-12.0); Monocyte# 0.76 X10^3/uL; Monocyte% 9.7 % (0-10); NRBC Flagged by Analyzer 0 % (0-5); Neutrophil # 4.39 X10^3/uL (2.7-7.7); Neutrophil % 56.1 % (47-70); Platelet Count 260 K/mm3 (150-450); RBC Distribution Width CV 12.6 % (11.6-14.6); RBC Distribution Width SD 41.8 fl (35.1-43.9); Red Blood Count 5.18 M/mm3 (4.6-6.2); White Blood Count 7.8 K/mm3 (4.4-11.0)
[2019-09-30 21:39] LABS: ALB/GLOB Ratio 1.1 RATIO (0.9-2.4); AST(SGOT) 22 U/L (15-37); Alanine Aminotransfer ALT/SGPT 43 U/L (16-61); Albumin, Serum 3.7 g/dL (3.2-5.0); Alkaline Phosphatase 96 U/L (45-117); Anion Gap 3 (5-15); BUN 14 mg/dL (7-18); BUN/Creat Ratio 10.4 RATIO (10-20); CRP < 2.90 mg/L (0.0-3.0); Calcium,Total 8.8 mg/dL (8.5-10.1); Chloride 108 mmol/L (98-107); Creatinine, Serum 1.35 mg/dL (0.70-1.30); EST Glomerular Filtration Rate 58 mL/min (>60); Est Glom Filt Rate - Afr Amer 70 mL/min (>60); Globulin 3.4 g/dL (2.2-4.2); Glucose 92 mg/dL (74-106); Potassium 4.1 mmol/L (3.5-5.1); Protein, Total 7.1 g/dL (6.4-8.2); Sodium Level 138 mmol/L (136-145)
== END ==
PROVIDERS: PCP Family Medicine; Referring Provider Family Medicine; Visit Provider Family Medicine
DX: K57.32 Diverticulitis of large intestine without perforation or abscess without bleeding (principal)
CPT/HCPCS: 36415; 80053; 85025; 86140

== ENCOUNTER → 2019-10-14 06:41 | Outpatient (CLI) | payer OTHER, SELFPAY ==
[2018-10-06 09:59] VITALS: BMI 33.2
[2019-10-12 10:51] VITALS: BMI 35.9
--- NOTE | 2019-10-14 06:47 | CT_ITS ---
STUDY: CT ABDOMEN AND PELVIS WITH AND WITHOUT CONTRAST REASON FOR EXAM: Male, 59 years old. DIVERTICULITIS/KIDNEY STONE LEFT SIDED PAIN, NOW RESOLVED. HISTORY OF KIDNEY STONES AND DIVERTICULITIS. PRIOR CHOLECYSTECTOMY RADIATION DOSAGE (If Supplied By Facility): CTDIvol = ( 26.49 ) mGy, DLP = ( 4807.32 ) mGycm TECHNIQUE: Transaxial images were obtained from the dome of the diaphragm to the symphysis pubis without oral contrast. IV 100mL Isovue-300 was administered. Sagittal and coronal images were reconstructed. Individualized dose optimization techniques were used for this CT. COMPARISON: Comparison is made with prior examination dated September 10, 2018. FINDINGS: The visualized lung bases are unremarkable. The visualized portions of the heart are within normal limits. Normal liver. The patient is status post cholecystectomy. Normal spleen. Normal pancreas. Normal bilateral adrenal glands. Normal right kidney. There is a 2 mm punctate calcification in the midpole calyx of the left kidney. Mild degree of bilateral perinephric stranding. Stable 5.9 cm x 4.5 cm left parapelvic renal cyst. Normal visualized stomach. Normal small intestine. There are multiple colonic diverticula consistent with diverticulosis. The appendix is visualized and appears normal. Normal abdominal aorta. Normal inferior vena cava. There is borderline retroperitoneal lymphadenopathy with enlarged nodes no greater than 10mm in the short axis diameter. Normal urinary bladder. There are prostatic calcifications. There is a small umbilical hernia containing fat. There are diffuse degenerative changes of the visualized lumbar spine. CT/CT Abd/Pelvis W/WO Contrast IMPRESSION: Tiny nonobstructive calculus in the left kidney. Stable left parapelvic renal cysts. There is no evidence of ureteral obstruction at this time. Electronically Signed: Orlando Zimmer, at 16:40 EST , Service support ,
[2019-10-14 08:01] LABS: AST(SGOT) 23 U/L (15-37); Alanine Aminotransfer ALT/SGPT 58 U/L (16-61); Albumin, Serum 3.5 g/dL (3.2-5.0); Alkaline Phosphatase 89 U/L (45-117); Bilirubin, Direct 0.14 mg/dL (0.00-0.30); Cholesterol 177 mg/dL (200); Globulin 3.4 g/dL (2.2-4.2); High Density Lipoprotein 39 mg/dL; Protein, Total 6.9 g/dL (6.4-8.2); Triglycerides 148 mg/dL; Very Low Density Lipoprotein 30 mg/dL (5-40)
== END ==
PROVIDERS: Internal Medicine Cardiovascular Disease; PCP Family Medicine; Referring Provider Family Medicine; Visit Provider Family Medicine
DX: E78.00 Pure hypercholesterolemia, unspecified (principal); K57.32 Diverticulitis of large intestine without perforation or abscess without bleeding; Z87.442 Personal history of urinary calculi
CPT/HCPCS: 36415; 74178; 80061; 80076; Q9967

== ENCOUNTER 2020-06-15 08:15 | Outpatient (RCR) | payer OTHER, SELFPAY ==
[2019-10-12 10:51] VITALS: BMI 35.9
--- NOTE | 2020-04-21 15:19 | MASS.EVAL_ITS ---
Massage Therapy Evaluation: Initial Evaluation Date: 04/21/2020 SUBJECTIVE: Denny is a 59 year old male who was referred to the [facility] facility for a massotherapy evaluation by Dr. Arenas with the diagnosis of back pain. Denny presents today with the symptoms of pain and tension in his right glute causing sciatica. He also complains of knee stiffness. Denny reports that he had a minor fall that has started his symptoms. He states that he only has pain with his sciatica when he is sleeping at night, and his knee stiffness happens during the day. OBJECTIVE: Upon observation Denny to have high muscle tension with tenderness and myofascial restrictions in his sub occipitals, levator scapulae, trapezius, rhomboids, scalenes, and paraspinals muscle group. His QL?s, lumbar paraspinals, piriformis, glute medius, glute minimus all had high tension with fascial restrictions and tender points. The first treatment consisted of a one hour mass age to his full body with myofascial release, muscle stripping, trigger point compression techniques. ASSESSMENT: I feel that Denny is a good candidate for massotherapy at this time. He had a favorable response to the first treatment with reduction in his muscle aches, pain and tension. He reported that where I was working in his glutes that he could tell that was where the pain was. PLAN: The plan of care was reviewed with the patient. The patient is to be seen on an as needed basis for a total of ten sessions with the recommendation of once every month for a one hour treatment.
--- NOTE | 2020-08-31 12:21 | DS.PCM_ITS ---
Massage Therapy Discharge Summary: Discharge Date: 08/31/2020 Denny was seen for a massotherapy evaluation on 04/21/2020 with the diagnosis of back pain. He was treated with four sessions of massage therapy consisting of deep pressure soft tissue techniques, myofascial release and trigger point compression to his cervical, thoracic, lower back, lower extremities and hips. Denny responded well to the therapy by reporting decreased tension and pain throughout his neck, shoulders, lower back and hips. His goals for therapy were met throughout the treatment sessions. At this time this patient is being discharged from our care at [facility] facility.
== END 2020-06-15 19:00 | disposition home or self-care (01) ==
LOC: MASS 08:15
PROVIDERS: PCP Family Medicine; Referring Provider Family Medicine; Visit Provider Family Medicine
DX: M54.9 Dorsalgia, unspecified (principal)
CPT/HCPCS: 97124

== ENCOUNTER 2020-09-20 09:00 | Outpatient (RCR) | payer OTHER, SELFPAY ==
[2019-10-12 10:51] VITALS: BMI 35.9
== END 2020-09-20 23:59 ==
LOC: IMMUN 09:00
PROVIDERS: PCP Family Medicine; Visit Provider Family Medicine
DX: Z23 Encounter for immunization (principal)
CPT/HCPCS: 0011A; 0012A; 91301

== ENCOUNTER 2020-12-14 08:15 | Outpatient (RCR) | payer OTHER, SELFPAY ==
[2019-10-12 10:51] VITALS: BMI 35.9
--- NOTE | 2020-09-26 15:57 | MASS.EVAL ---
Massage Therapy Evaluation: Initial Evaluation Date: 09/20/2020 /Age: 0109/21/1960, 59 Diagnosis: Back Pain Goals: Decrease muscle tension Decrease back pain Improve range of motion Assessment: Denny is a good candidate for massage at this time. We have had success treating his symptoms in the past. Plan: To be seen one time per month or PRN for a total of 10 one hour sessions.
--- NOTE | 2021-08-22 12:36 | MASS.DISCH ---
Massage Therapy Discharge Summary: Initial Evaluation Date: 09/29/20 Diagnosis: Back Pain No. of Visits: 4 Date of last visit: 12/14/20 This patient is being discharged from our care at the [facility]. Thank you, Bina Alfaro LMT
== END 2020-12-14 19:00 | disposition home or self-care (01) ==
LOC: MASS 08:15
PROVIDERS: PCP Family Medicine; Referring Provider Family Medicine; Visit Provider Family Medicine
DX: M54.9 Dorsalgia, unspecified (principal)
CPT/HCPCS: 97124

== ENCOUNTER → 2022-02-01 | Outpatient (CLI) | payer OTHER, SELFPAY ==
--- NOTE | 2022-02-01 08:25 | RAD_ITS ---
STUDY: X-RAY - RIGHT KNEE REASON FOR EXAM: Male, 61 years old. pain TECHNIQUE: 4 view(s) of the knee. COMPARISON: 04/16/2018 FINDINGS: Normal visualized distal femur. Normal visualized proximal tibia and fibula. Normal proximal tibiofibular articulation. Status post medial compartment arthroplasty. The prosthesis appears located. No ostial lysis to suggest loosening. There is mild degenerative arthrosis of the lateral femorotibial compartment. There is moderate degenerative arthrosis of the patellofemoral articulation. The soft tissue structures are unremarkable. RAD/Knee 4 or More Views IMPRESSION: No change from 04/16/2018 Electronically Signed: Jenaro Vaca MD at 9:09 EDT ,
--- NOTE | 2022-02-01 08:25 | RAD_ITS ---
STUDY: X-RAY - RIGHT KNEE REASON FOR EXAM: Male, 61 years old. pain TECHNIQUE: 4 view(s) of the knee. COMPARISON: 04/16/2018 FINDINGS: Normal visualized distal femur. Normal visualized proximal tibia and fibula. Normal proximal tibiofibular articulation. Status post medial compartment arthroplasty. Prosthesis appears located. No ostial lysis to suggest loosening. There is mild degenerative arthrosis of the lateral femorotibial compartment. There is moderate degenerative arthrosis of the patellofemoral articulation. The soft tissue structures are unremarkable. RAD/Knee 4 or More Views IMPRESSION: No change from 04/16/2018 Electronically Signed: Jenaro Vaca MD at 9:02 EDT ,
== END | disposition home or self-care (01) ==
LOC: MTRAD 08:24
PROVIDERS: PCP Family Medicine; Referring Provider Physician Assistant; Visit Provider Physician Assistant
DX: M25.562 Pain in left knee (principal); M25.561 Pain in right knee
CPT/HCPCS: 73564

== ENCOUNTER → 2022-02-06 | Outpatient (CLI) | payer OTHER, SELFPAY ==
--- NOTE | 2022-02-06 07:54 | CDU_ITS ---
Reason For Study: Unspecified atherosclerosis Rt. Velocities/BP Lt. Velocities/BP Prox CCA 126.6/24.3 cm/sec. Prox CCA 130.2/29.8 cm/sec. Mid CCA 96.2/23.7 cm/sec. Mid CCA 104.7/24.3 cm/sec. Dist CCA 70.4/15.1 cm/sec. Dist CCA 80.9/24.3 cm/sec. Prox ICA 60.5/15.1 cm/sec. Prox ICA 71.6/26.2 cm/sec. Mid ICA 90/31.1 cm/sec. Mid ICA 79/28.6 cm/sec. Dist ICA 96.2/32.3 cm/sec. Dist ICA 83.9/28.6 cm/sec. Rt. ICA/CCA = 1.00. Lt. ICA/CCA = 0.80. Prox ECA 160.9/20.4 cm/sec. Prox ECA 124.7/13.3 cm/sec. Rt. Vert. 59.3/13.9 cm/sec. Lt. Vert. 53.1/14.6 cm/sec. Right Extracranial There is intimal thickening but no significant atherosclerotic plaque noted in the right common carotid artery. There is homogeneous, smooth atherosclerotic plaque noted in the right internal carotid artery. There is heterogeneous, irregular atherosclerotic plaque noted in the right external carotid artery. Antegrade flow is noted in the right vertebral artery. Left Extracranial There is homogeneous, smooth atherosclerotic plaque noted in the left common carotid artery. There is homogeneous, smooth atherosclerotic plaque noted in the left internal carotid artery. There is intimal thickening but no significant atherosclerotic plaque noted in the left external carotid artery. Antegrade flow is noted in the left vertebral artery. Procedure Carotid Duplex 23098. This is a Carotid Duplex examination using B-mode, color flow and specral Doppler. Exam performed in department. VL/Carotid Duplex Ultrasound Interpretation Summary Smooth plaque at the proximal right internal carotid artery with less than 50% stenosis Less than 50% stenosis right external carotid artery Smooth plaque at the proximal left internal carotid artery with less than 50% s tenosis Less than 50% stenosis left external carotid artery Patent and antegrade vertebral arteries bilaterally Ordering Physician: Jayson Arenas Referring Physician: Jayson Arenas Performed By: Ani Romero RVT
== END | disposition home or self-care (01) ==
LOC: CVS 07:52
PROVIDERS: PCP Family Medicine; Referring Provider Family Medicine; Visit Provider Family Medicine
DX: I70.90 Unspecified atherosclerosis (principal)
CPT/HCPCS: 93880

== ENCOUNTER 2022-05-11 07:30 | Outpatient (RCR) | payer OTHER, SELFPAY ==
--- NOTE | 2022-02-07 07:59 | HP.PTEVAL_ITS ---
Patient's Visit Information MEAGHAN RUBI is a 61 year old M referred to Physical Therapy by KACI Sandoval with a diagnosis of Bilateral PF OA, Bilateral ITBand Tightness, Right Knee Flexion Contracture. Date of Evaluation: 02/07/22 Physical Therapist: Renetta Weinstein DPT - Visit Plan Frequency: 3x /Week Duration: 4 Weeks Plan: Focus on LE and core strength/stabilization and flexibility- Quad strength. HEP Given IE: Gastroc Stretch Standing on Step, Quad set sitting/supine/standing, Hamstring Stretch 90/90 supine - Subjective Patient reports that he knee numbness around both knee caps and they are stiff- feels like fatigue- insidious onset for about 4 months. He went to see the PA and he feels that its from tightness and weakness. He is worse when he is on concrete. Neither is better or worse. Right partial knee replacement still has decreased ROM. Did have x-rays taken which showed OA under the knee caps. The feeling is like an elastic band around the knee cap. He does have popping and clicking in his hips. When he rolls over at night he can feel it in his hips- no problems sleeping. He was having massages in the fall and they commented on his leg tightness but he has stopped. The feeling comes immediately when he is up- takes about 10-15 min to relax once he is sitting. With the knee bent he can just feel it. He always has some sort of discomfort. No pain that radiates. Back Surgery in 1993 and 1999- his back does not really bother him- but he does not have the flexibility he did before. 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 Has not experienced buckling or instability. He has tried Tramadol and Tylenol but nothing really seems to work. He gave him a prescription for Voltran but he has not filled it. No N/T down into his toes. PMHx/Meds: no changes since he saw MD- see chart. - Objective Posture: fair- mild FH, RS- can correct but does not maintain. Gait: slightly antalgic- decreased heel/toe bilateral due to decreased bilateral knee ROM. HR/TR: able but reports tightness. Stairs: asc/desc 8 recip with no HR- fair control. SLS: 30 sec without LOB- mild pes planus. Palpation: not tender to touch bilateral LE. ROM: Core: WFL, Hip: WFL, Knee: Left: 10-130 Right: 15-130 degrees. Ankle: WFL. Strength: Core: fair Hip: flexion/abd: 4+/5, Extn: 5/5, Add: 5/5, IR/ER: 4/5, Knee: Flexion- 4+/5, Extn: 5/5 Quad set visible but diminished due to lack of extension ROM. Flex: HS: severe, Gastroc: Severe. Sensation: WFL. Reflex: Patellar: WFL - Special Tests R Hip Concepcion - IT Band: Positive L Hip Concepcion - IT Band: Positive R Knee Kiran - Meniscus: Negative R Knee Valgus - MCL: Negative R Knee Varus - LCL: Negative R Knee Patellar Grind - PFS: Positive Comments: Poor Patellar Mobility L Knee Kiran - Meniscus: Negative L Knee Valgus - MCL: Negative L Knee Varus - LCL: Negative L Knee Patellar Grind - PFS: Positive Comments: Poor Patellar Mobility - Balance/Special Test Scores Lower Extremity Functional Score: 50 - Goals Goal 1:: Patient will be I with HEP and progression Goal Time Frame: 4-6 Weeks Goal 2:: Patient will report ability to stand for longer than 30 min without discomfort Goal Time Frame: 4-6 Weeks Goal 3:: Patient will demo mild flexibility deficit in bilateral hamstrings Goal Time Frame: 4-6 Weeks Goal 4:: Patient will maintain proper posture t/o tx session to demo increased core s/s Goal Time Frame: 4-6 Weeks Goal 5:: Patient will report 80% improvement Goal Time Frame: 4-6 Weeks - Rehabilitation Potential Physical Therapy Diagnosis: Patient presents with hypomobility- he has decreased LE and core strength/stabilization, knee ROM, flex and muscular endurance leading to increased fatigue and discomfort with ADL's. Rehabilitation Potential: Fair - Anticipated Interventions Patient/Client Instruction: Educate patient on: Benefits of Fitness Program Therapeutic Exercise to Include: Strength training, Endurance training, Balance training, Coordination, Agility training, Body mechanics, Postural training, Flexibilty training, Gait and locomotor training, Neuromotor development, Dynamic Lumbar Stabilization, Scapular Strength/Stabilization For the Purpose of:: To improve muscle performance and motor function Manual Therapy Techniques to Include: Functional dry needling, Soft tissue mobilization TENS: Yes Cryotherapy (ice pack, ice massage): Yes Thermo therapy (hot pack): Yes Ultrasound (thermal/non thermal): Yes Thank you for the opportunity to evaluate your patient. For Medicare and Medicare HMO plans, please review the plan of care and approve it. It will need to be FAXED BACK to us at [phone] for Medicare purposes. For Medicare only, by signing this I certify the plan of care. Please let me know if there are questions or concerns regarding this plan of care. Physician Si gnature: Date:
--- NOTE | 2022-03-09 08:21 | HP.PTREVAL ---
KACI Sandoval, It has been my pleasure to treat MEAGHAN RUBI over the last 13 visits for Bilateral PF OA, Bilateral ITBand Tightness, Right Knee Flexion Contracture. Please see the progress note below for an update on the physical therapy plan of care! Subjective: Patient reports that the knees are tight around the knee caps- He reports the knees and hip are much better. He is for the most part pretty pain free. More stiffness in the morning and then again when he is standing for long periods of time on concrete. Objective/Function: Posture: fair throughout. Gait: slightly antalgic- decreased heel/toe bilateral due to decreased bilateral knee ROM. HR/TR: able. Stairs: asc/desc 8 recip with no HR- fair control. SLS: 30 sec without LOB- mild pes planus. Palpation: not tender to touch bilateral LE. ROM: Core: WFL, Hip: WFL, Knee: Left: 5-130 Right: 10-130 degrees. Ankle: WFL. Strength: Core: fair Hip: flexion/abd: 4+/5, Extn: 5/5, Add: 5/5, IR/ER: 4/5, Knee: Flexion- 4+/5, Extn: 5/5 Quad set visible but diminished due to lack of extension ROM. Flex: HS: severe, Gastroc: Severe. Sensation: WFL. Reflex: Patellar: WFL. - Special Tests. R Hip Concepcion - IT Band: Positive. L Hip Concepcion - IT Band: Positive. R Knee Kiran - Meniscus: Negative. R Knee Valgus - MCL: Negative. R Knee Varus - LCL: Negative. R Knee Patellar Grind - PFS: Positive. Comments: Poor Patellar Mobility. L Knee Kiran - Meniscus: Negative. L Knee Valgus - MCL: Negative. L Knee Varus - LCL: Negative. L Knee Patellar Grind - PFS: Positive. Comments: Increased tightness right>left Patellar Mobility Plan Plan: 03/09/22: Continue with POC- increase hamstring length and strength in posterior chain. Focus on LE and core strength/stabilization and flexibility- Quad strength Balance/Gait/Functional tests - Balance/Special Test Scores Lower Extremity Functional Score: 67 Goals Goal 1:: Patient will be I with HEP and progression Goal Time Frame: 4-6 Weeks Goal 2:: Patient will report ability to stand for longer than 30 min without discomfort Goal Time Frame: 4-6 Weeks Goal 3:: Patient will demo mild flexibility deficit in bilateral hamstrings Goal Time Frame: 4-6 Weeks Goal 4:: Patient will maintain proper posture t/o tx session to demo increased core s/s Goal Time Frame: 4-6 Weeks Goal 5:: Patient will report 80% improvement Goal Time Frame: 4-6 Weeks Anticipated Interventions Patient/Client Instruction: Educate patient on: Benefits of Fitness Program Therapeutic Exercise to Include: Strength training, Endurance training, Balance training, Coordination, Agility training, Body mechanics, Postural training, Flexibilty training, Gait and locomotor training, Neuromotor development, Dynamic Lumbar Stabilization, Scapular Strength/Stabilization For the Purpose of:: To improve muscle performance and motor function Manual Therapy Techniques to Include: Functional dry needling, Soft tissue mobilization TENS: Yes Cryotherapy (ice pack, ice massage): Yes Thermo therapy (hot pack): Yes Ultrasound (thermal/non thermal): Yes Please do not hesitate to contact me at [phone] by phone or if you have questions or concerns regarding this new plan of care! Sincerely, Renetta Weinstein DPT
--- NOTE | 2022-05-11 08:17 | HP.PTDCSUM_ITS ---
It has been my pleasure to treat MEAGHAN RUBI referred by KACI Sandoval, with the diagnosis of Bilateral PF OA, Bilateral ITBand Tightness, Right Knee Flexion Contracture for a total of 29 visit(s). Discharge Date: Please see the following information for a summary of their discharge status. Subjective: Patient reports that he has made a lot of progress- still mostly just standing or on concrete for long periods of time- just stiffness- at the top of the patella. Sometimes radiating pain to the calf if standing for 5-10 min. % Improvement: 85 Objective/Function: Posture: fair throughout. Gait: sno deviation noted HR/TR: able. Stairs: asc/desc 8 recip with no HR- fair control. SLS: 30 sec without LOB- mild pes planus. Palpation: not tender to touch bilateral LE. ROM: Core: WFL, Hip: WFL, Knee: Left: 5-130 Right: 5-130 degrees. Ankle: WFL. Strength: Core: fair Hip: 5/5 Knee: 5/5 Q Flex: HS: severe, Gastroc: Severe. Sensation: WFL. Reflex: Patellar: WFL. Goal 1:: Patient will be I with HEP and progression Goal Progress: Goal Met Goal 2:: Patient will report ability to stand for longer than 30 min without discomfort Goal Progress: Progressing Goal 3:: Patient will demo mild flexibility deficit in bilateral hamstrings Goal Progress: Progressing Goal 4:: Patient will maintain proper posture t/o tx session to demo increased core s/s Goal Progress: Progressing Goal 5:: Patient will report 80% improvement Goal Progress: Goal Met Plan: Discharge to [facility] If there are questions or concerns regarding this patient's physical therapy, please feel free to call me at [phone]. Thank you for the referral of this patient. Sincerely, Renetta Weinstein, DPT Balance/Gait/Functional tests - Balance/Special Test Scores Lower Extremity Functional Score: 69
== END 2022-05-11 19:00 | disposition home or self-care (01) ==
LOC: PT 07:30
PROVIDERS: PCP Family Medicine; Referring Provider Physician Assistant; Visit Provider Physician Assistant
DX: M22.2X1 Patellofemoral disorders, right knee (principal); M22.2X2 Patellofemoral disorders, left knee; M76.31 Iliotibial band syndrome, right leg; M76.32 Iliotibial band syndrome, left leg; M24.561 Contracture, right knee
CPT/HCPCS: 97110; 97162; 97164

== ENCOUNTER → 2023-03-29 | Outpatient (CLI) | payer OTHER, SELFPAY ==
--- NOTE | 2023-03-29 08:46 | RAD_ITS ---
STUDY: X-RAY - PELVIS AND RIGHT HIP REASON FOR EXAM: Male, 62 years old. Pain. TECHNIQUE: 3 views of the pelvis and hip. COMPARISON: None. FINDINGS: There is a non-specific bowel gas pattern. Normal visualized soft tissue structures. Osteopenia. Mild arthrosis of both sacroiliac joints. Mild arthrosis of the symphysis pubis. Moderate arthrosis of both hips with osteophyte formation, left slightly greater than right. RAD/HIP, UNI W/ Pelvis 2-3 Views IMPRESSION: Osteopenia with osteoarthritic changes as described. No acute abnormality or erosive changes Electronically Signed: Brett Mendieta MD at 9:59 EDT ,
--- NOTE | 2023-03-29 08:46 | RAD_ITS ---
STUDY: X-RAY - LEFT KNEE REASON FOR EXAM: Male, 62 years old. Pain. TECHNIQUE: 4 view(s) of the knee. COMPARISON: Left knee x-rays dated January 2022. FINDINGS: Osteopenia. Stable medial compartmental hemiarthroplasty with no complications. Mild arthrosis of the lateral and patellofemoral compartments unchanged. Normal soft tissues. RAD/Knee 4 or More Views IMPRESSION: Stable uncomplicated medial compartment hemiarthroplasty. No acute abnormality or erosive changes. Electronically Signed: Brett Mendieta MD at 9:58 EDT ,
--- NOTE | 2023-03-29 09:03 | RAD_ITS ---
STUDY: X-RAY - RIGHT KNEE REASON FOR EXAM: Male, 62 years old. Tightness. TECHNIQUE: 4 view(s) of the knee. COMPARISON: Knee x-rays dated January 2022 FINDINGS: Osteopenia. Stable medial compartmental hemiarthroplasty. No complications. Mild arthrosis of the lateral compartment. Moderate to marked arthrosis of the patellofemoral compartment with osteophytes. Normal soft tissues. RAD/Knee 4 or More Views IMPRESSION: Stable osteopenia with medial compartment hemiarthroplasty and arthrosis of the lateral and patellofemoral compartments. No acute abnormality, complications or erosive changes. Electronically Signed: Brett Mendieta MD at 9:57 EDT ,
== END | disposition home or self-care (01) ==
PROVIDERS: PCP Family Medicine; Referring Provider Orthopaedic Surgery Sports Medicine; Visit Provider Orthopaedic Surgery Sports Medicine
DX: M25.561 Pain in right knee (principal); M25.562 Pain in left knee; M25.551 Pain in right hip
CPT/HCPCS: 73502; 73564

== ENCOUNTER → 2023-07-02 | Outpatient (CLI) | payer OTHER, SELFPAY ==
[2023-07-02 07:30] LABS: Absolute Lymphocyte Count 2.26 X10^3/uL (0.83-4.51); Absolute Neutrophil Count 3.9 X10^3/uL (2.0-7.7); Basophil# 0.06 X10^3/uL; Basophil% 0.9 % (0-1); Eosinophil# 0.14 X10^3/uL; Hemoglobin 15.6 g/dL (13.0-16.5); Lymphocyte # 2.26 X10^3/ul (0.83-4.51); Lymphocyte % 32.3 % (19-41); Mean Corp Hgb Conc 32.5 g/dL (32-36); Mean Corpuscular Hgb 29.8 pg (27.0-32.0); Mean Corpuscular Volume 91.8 fL (80-94); Mean Platelet Vol. 9.1 fl (6.2-12.0); Monocyte# 0.62 X10^3/uL; Monocyte% 8.9 % (0-10); NRBC Flagged by Analyzer 0 % (0-5); Neutrophil # 3.91 X10^3/uL (2.7-7.7); Neutrophil % 55.8 % (47-70); Platelet Count 264 K/mm3 (150-450); RBC Distribution Width CV 13.3 % (11.6-14.6); RBC Distribution Width SD 45.8 fl (35.1-43.9); Red Blood Count 5.23 M/mm3 (4.6-6.2)
[2023-07-02 08:37] LABS: ALB/GLOB Ratio 0.9 RATIO (0.9-2.4); AST(SGOT) 20 U/L (15-37); Alanine Aminotransfer ALT/SGPT 42 U/L (16-61); Albumin, Serum 3.3 g/dL (3.2-5.0); Alkaline Phosphatase 94 U/L (45-117); Anion Gap 3 (5-15); BUN 10 mg/dL (7-18); BUN/Creat Ratio 10.5 RATIO (10-20); Calcium,Total 8.4 mg/dL (8.5-10.1); Chloride 111 mmol/L (98-107); Cholesterol 160 mg/dL (200); Creatinine, Serum 0.95 mg/dL (0.70-1.30); EST Glomerular Filtration Rate 86 mL/min (>60); Est Glom Filt Rate - Afr Amer 104 mL/min (>60); Globulin 3.8 g/dL (2.2-4.2); Glucose 110 mg/dL (74-106); High Density Lipoprotein 45 mg/dL; PSA,Total - Annual Screen 2.65 ng/mL (0.00-4.00); Potassium 4.3 mmol/L (3.5-5.1); Protein, Total 7.1 g/dL (6.4-8.2); Sodium Level 140 mmol/L (136-145); Thyroid Stim Hormone (TSH) 3.42 uIU/mL (0.358-3.74); Triglycerides 98 mg/dL; Very Low Density Lipoprotein 20 mg/dL (5-40)
== END | disposition home or self-care (01) ==
LOC: LAB 07:10
PROVIDERS: PCP Family Medicine; Referring Provider Family Medicine; Visit Provider Family Medicine
DX: F43.29 Adjustment disorder with other symptoms (principal); Z13.220 Encounter for screening for lipoid disorders; Z12.5 Encounter for screening for malignant neoplasm of prostate
CPT/HCPCS: 36415; 80053; 80061; 84153; 84443; 85025; G0103

== ENCOUNTER → 2024-09-24 | Outpatient (CLI) | payer OTHER, SELFPAY ==
[2024-09-24 06:48] LABS: Absolute Lymphocyte Count 2.08 X10^3/uL (0.83-4.51); Absolute Neutrophil Count 2.9 X10^3/uL (2.0-7.7); Basophil# 0.05 X10^3/uL; Basophil% 0.8 % (0-1); Eosinophil# 0.18 X10^3/uL; Hematocrit 46.5 % (40-54); Hemoglobin 15.4 g/dL (13.0-16.5); Lymphocyte # 2.08 X10^3/ul (0.83-4.51); Lymphocyte % 35.2 % (19-41); Mean Corp Hgb Conc 33.1 g/dL (32-36); Mean Corpuscular Hgb 29.6 pg (27.0-32.0); Mean Corpuscular Volume 89.4 fL (80-94); Monocyte# 0.67 X10^3/uL; Monocyte% 11.3 % (0-10); NRBC Flagged by Analyzer 0 % (0-5); Neutrophil # 2.92 X10^3/uL (2.7-7.7); Neutrophil % 49.5 % (47-70); Platelet Count 266 K/mm3 (150-450); RBC Distribution Width CV 13.2 % (11.6-14.6); White Blood Count 5.9 K/mm3 (4.4-11.0)
[2024-09-24 07:42] LABS: ALB/GLOB Ratio 0.9 RATIO (0.9-2.4); AST(SGOT) 24 U/L (15-37); Alanine Aminotransfer ALT/SGPT 41 U/L (16-61); Albumin, Serum 3.3 g/dL (3.2-5.0); Alkaline Phosphatase 97 U/L (45-117); Anion Gap 5 (5-15); BUN 12 mg/dL (7-18); BUN/Creat Ratio 13.7 RATIO (10-20); CRP < 2.90 mg/L (0.0-3.0); Calcium,Total 8.7 mg/dL (8.5-10.1); Chloride 111 mmol/L (98-107); Cholesterol 181 mg/dL (200); Creatinine, Serum 0.88 mg/dL (0.70-1.30); EST Glomerular Filtration Rate 93 mL/min (>60); Est Glom Filt Rate - Afr Amer 113 mL/min (>60); Globulin 3.8 g/dL (2.2-4.2); Glucose 103 mg/dL (74-106); High Density Lipoprotein 44 mg/dL; Potassium 4.3 mmol/L (3.5-5.1); Protein, Total 7.1 g/dL (6.4-8.2); Sodium Level 141 mmol/L (136-145); Triglycerides 79 mg/dL; Very Low Density Lipoprotein 16 mg/dL (5-40)
[2024-09-24 09:18] LABS: Hemoglobin A1c 5.8 % (3.8-5.6)
== END | disposition home or self-care (01) ==
LOC: LAB 06:30
PROVIDERS: PCP Family Medicine; Referring Provider Family Medicine; Visit Provider Family Medicine
DX: R10.32 Left lower quadrant pain (principal); I70.90 Unspecified atherosclerosis; E66.812 Obesity, class 2

== ENCOUNTER → 2025-06-22 | Outpatient (CLI) | payer OTHER, SELFPAY ==
--- NOTE | 2025-06-22 07:07 | RAD_ITS ---
PROCEDURE: L/S SPINE MIN 4 VIEWS 06/22/2025 REASON FOR EXAM: PAIN TECHNIQUE: Procedure Code: RADSPLS Modality: DX Procedure: L/S SPINE MIN 4 VIEWS FINDINGS: No evidence of acute fracture or dislocation. Dextroscoliosis. [id number] degenerative changes of the visualized spine. Vertebral body heights are maintained. No spondylolisthesis. RAD/L/S Spine Min 4 Views IMPRESSION: Scoliosis. Spondylolisthesis. Reading Location: [id number]
--- NOTE | 2025-06-22 07:07 | RAD_ITS ---
PROCEDURE: KNEE 4 OR MORE VIEWS 06/22/2025 REASON FOR EXAM: PAIN TECHNIQUE: Procedure Code: RADKN Modality: DX Procedure: KNEE 4 OR MORE VIEWS Laterality: Right COMPARISON: None FINDINGS: There is a medial compartment arthroplasty noted. This is grossly intact. There is severe patellofemoral compartment joint space narrowing and osteophytosis. There is a small joint effusion. No acute fracture or dislocation. RAD/Knee 4 or More Views IMPRESSION: Orthopedic hardware is intact. Degenerative changes without acute fracture. Reading Location: [facility]
--- NOTE | 2025-06-22 07:07 | RAD_ITS ---
PROCEDURE: HIP, UNI W/ PELVIS 2-3 VIEWS 06/22/2025 REASON FOR EXAM: PAIN TECHNIQUE: Procedure Code: [facility] Modality: DX Procedure: HIP, UNI W/ PELVIS 2-3 VIEWS Laterality: FINDINGS: No evidence of acute fracture or dislocation. Moderate degenerative changes of bilateral hips. Degenerative changes of the partially visualized spine. RAD/HIP, UNI W/ Pelvis 2-3 Views IMPRESSION: Bilateral hip osteoarthrosis. Reading Location: [id number]
== END | disposition home or self-care (01) ==
LOC: RAD 07:04
PROVIDERS: PCP Family Medicine; Referring Provider Orthopaedic Surgery; Visit Provider Orthopaedic Surgery
DX: M25.561 Pain in right knee (principal); M25.551 Pain in right hip; M79.606 Pain in leg, unspecified
CPT/HCPCS: 72110; 73502; 73564

== ENCOUNTER → 2025-08-03 | Outpatient (CLI) | payer OTHER, SELFPAY ==
--- NOTE | 2025-08-03 13:52 | MRI_ITS ---
PROCEDURE: SPINE LUMBAR (ROUTINE) 08/03/2025 REASON FOR EXAM: LUMBAR RADICULOPATHY TECHNIQUE: Procedure Code: MRISPL Modality: MR Procedure: SPINE LUMBAR (ROUTINE) COMPARISON: None available. FINDINGS: For the purposes of this report, the most caudal rectangular vertebral body will be designated L5. The next most caudal trapezoidal shaped vertebral body will be designated S1. The intervening disc at the lumbosacral angle is designated L5-S1. The normal lumbar lordosis is maintained. Mild lumbar dextroscoliosis. The lumbar vertebral bodies are normal in height. The lumbar vertebral bodies are normal in alignment. The lumbar bone marrow signal is within normal limits. Multilevel disc desiccation and intervertebral disc space height loss. Near-complete collapse of the L4-L5 intervertebral disc space. Multiple anterior osteophytes. There is no evidence of signal abnormality in the imaged distal spinal cord. The conus medullaris terminates at the level of L1. T12-L1: No significant spinal canal stenosis neural foraminal narrowing. L1-L2: Disc bulge, bilateral facet arthrosis, and ligamentum flavum hypertrophy contribute to mild spinal canal stenosis. Mild bilateral neural foraminal narrowing. Type 2 Modic endplate changes. L2-L3: Disc bulge, bilateral facet arthrosis, and ligamentum flavum hypertrophy contribute to mild spinal canal stenosis. [id number] bilateral neural foraminal narrowing. Type 2 Modic endplate changes. L3-L4: Disc bulge, bilateral facet arthrosis, and ligamentum flavum hypertrophy contribute to mild spinal canal stenosis. Mild bilateral neural foraminal narrowing. L4-L5: Posterior osteophyte, bilateral facet arthrosis, ligamentum flavum hypertrophy. Mild spinal canal stenosis and subarticular zone narrowing. Mild bilateral neural foraminal narrowing. Type 2 Modic endplate changes. L5-S1: Disc bulge and posterior annular fissure, bilateral facet arthrosis, and ligamentum flavum hypertrophy. Mild spinal canal stenosis. Mild right and moderate left neural foraminal narrowing. Fatty atrophy of the posterior paraspinal muscles. Partially visualized cystic lesion in the left renal region which may reflect a renal cyst. MRI/Spine Lumbar (Routine) IMPRESSION: Lumbar spondylosis without high-grade spinal canal or neural foraminal stenosis . Additional details as discussed above. Partially visualized cystic lesion in the left renal region which may reflect a renal cyst. Reading Location: [id number]
== END | disposition home or self-care (01) ==
LOC: MRI 13:49
PROVIDERS: PCP Family Medicine; Referring Provider Anesthesiology; Visit Provider Anesthesiology
DX: M54.16 Radiculopathy, lumbar region (principal)
CPT/HCPCS: 72148